=== PATIENT | female | born 1970 | race African-American/Black ===

== ENCOUNTER 2020-05-11 16:42 | Emergency (ER) | payer BC, SELFPAY ==
--- NOTE | ~2020-05-11 | XR_ITS ---
EXAMINATION: XR ankle RT 2V EXAM DATE: 05/11/2020 17:23 INDICATION: Painful lump posterior right Achilles region. TECHNIQUE: Frontal and lateral projections of the right ankle. There is no prior study for comparis on. FINDINGS: There are no acute fractures or dislocations identified. There is no subcutaneous gas. Th e soft tissue is unremarkable. There are no radiopaque foreign bodies. IMPRESSION: 1. Unremarkable XR ankle RT 2V exam. Reviewed, dictated and finalized at location [facility].
[2020-05-11 17:01] VITALS: BP 145/96; PULSE 76; RESP 16; TEMP 36.7; O2SAT 98
--- NOTE | 2020-05-11 17:04 | ED.LOWEXIN ---
HPI - Extremity Injury (Lower) General Chief Complaint: Extremity Injury, Lower Stated Complaint: Foot pain Time Seen by Provider: 05/11/20 17:06 Source: patient and RN notes reviewed Mode of arrival: ambulatory Limitations: no limitations History of Present Illness HPI Narrative: 49-year-old female presents with concern for right ankle pain. She denies any injury, trauma. Reports the area is very tender to touch, however it does not hurt when she is walking or bearing weight. Reports mostly hurts when she lies in bed and the painful area touches the bed or her other foot. She reports pain is a 10 out of 10 when the area is touched. MD complaint: other (Ankle pain) Related Data Home Medications Medication Instructions Recorded Confirmed Unable to Obtain Home Medications 05/11/20 05/11/20 Allergies Allergy/AdvReac Type Severity Reaction Status Date / Time Penicillins Allergy Intermediate Rash Verified 05/11/20 17:04 Review of Systems Review of Systems: Narrative: CONSTITUTIONAL: Denies malaise, chills, sweats, or fever. CARDIOVASCULAR: Denies chest pain, palpitations, or edema. RESPIRATORY: Denies cough or dyspnea. SKIN: Denies bruising, redness MUSCULOSKELETAL: Reports right posterior ankle tenderness NEUROLOGIC: Denies numbness, weakness All systems reviewed & are unremarkable except as noted in HPI and below PMFSH Comments At time of signature, agree with nursing past medical, surgical, social and family history. There is no relevant family history pertinent to the presenting complaint Exam Narrative: Exam Narrative: GENERAL: Well-appearing, well-nourished, and in no acute distress. HEAD: Normocephalic, atraumatic. EYES: PERRLA, conjunctivae clear NECK: Supple. CHEST: Speaks in full sentences. No respiratory distress. HEART: Regular rate and rhythm. Normal and equal peripheral pulses. EXTREMITIES: Right ankle, digits of right foot have normal strength and sensation, normal range of motion. No edema or ecchymosis. 5/5 strength with ankle and digit flexion and extension. Normal sensation with sensitivity to light touch and pain. No open wounds, no skin tenting, no devitalized tissue or atrophy, no trophic changes, no obvious deformity, alignment normal, posterior lateral point tenderness, nearby joints and structures intact. Distal pulses palpable and equal bilaterally, skin warm, dry, pink. Capillary refill less than 3 seconds. SKIN: Warm, dry, no rash. NEURO: Alert and oriented x3. PSYCH: Normal mood and affect Course Course Emergency Course: Patient is aware of diagnosis, understands and agrees to treatment plan. Anticipatory guidance given. Patient agrees to follow-up as directed and is aware of reasons to seek care at the emergency department. Portions of this record may have been created with voice recognition software Vital Signs Vital signs: Vital Signs Temperature 98.0 F 05/11/20 17:01 Pulse Rate 76 05/11/20 17:01 Respiratory Rate 16 05/11/20 17:01 Blood Pressure 145/96 H 05/11/20 17:01 Pulse Oximetry 98 05/11/20 17:01 Temperature 98.0 F 05/11/20 17:01 Pulse Rate 76 05/11/20 17:01 Respiratory Rate 16 05/11/20 17:01 Blood Pressure 145/96 H 05/11/20 17:01 Pulse Oximetry 98 05/11/20 17:01 Reviewed. Patient has history of hypertension MDM - Extremity Injury (Lower) MDM Narrative Medical decision making narrative: Patients pain is consistent with musculoskeletal etiology. No signs of neurological or vascular compromise on exam. Compartments and tissues are soft without signs of compartment syndrome. Pain is felt appropriate for further evaluation on an outpatient basis. Imaging Data My impression: Images reviewed, interpreted by radiologist, agree, see report. Radiologist's impression: EXAMINATION: XR ankle RT 2V EXAM DATE: 05/11/2020 17:23 INDICATION: Painful lump posterior right Achilles region. TECHNIQUE: Frontal and lateral projections of the right ankle.
== END 2020-05-11 17:49 | disposition home or self-care (01) ==
PROVIDERS: Emergency Provider Nurse Practitioner; PCP Family Medicine
DX: M25.571 Pain in right ankle and joints of right foot (principal); I10 Essential (primary) hypertension
CPT/HCPCS: 73600; 99203; G0463

== ENCOUNTER 2020-05-24 09:00 | Emergency (ER) | payer BC, SELFPAY ==
[2020-05-24 09:10] VITALS: BP 145/86; PULSE 74; RESP 16; TEMP 36.5; O2SAT 99
--- NOTE | 2020-05-24 09:13 | ED.GENADULT ---
HPI - General Adult General Chief complaint: Skin/Abscess/Foreign Body Stated complaint: painful lump on right side of head Time Seen by Provider: 05/24/20 09:14 Source: patient and RN notes reviewed Mode of arrival: ambulatory Limitations: no limitations History of Present Illness HPI narrative: 49-year-old -[place] female presents with complaints of Right forehead with a tender and swollen lesion for the past 3-4 months. Tender to touch. Area has increase in size and tenderness over the past 2 weeks. No drainage. History of skin abscess and fatty deposits. No fever or chills. No abdominal pain, nausea, and vomiting. LMP, Post-menopausal. Remains active. The patient reports she have not been diagnosed with COVID-19. The patient reports she is not waiting for the results of a COVID-19 lab test. The patient reports she do not have fever, chills, weakness, fatigue. The patient reports she do not have a new or worsening cough or shortness of breath. Denies chest pain. The patient reports she do not have any rhinorrhea, congestion, loss of taste, sore throat, nausea, vomiting, abdominal pain, and diarrhea. Tolerating po intake well. Denies recent traveling. Denies concerns for COVID-19 or exposures been home with limited outdoor exposure except for essential household needs, work, and return home. At this time, patient is not suspected of having COVID-19. Some parts of this dictation were generated by voice recognition software and may contain typographical and/or grammatical inaccuracies. Related Data Home Medications Medication Instructions Recorded Confirmed No Home Medications 05/24/20 05/24/20 Allergies Allergy/AdvReac Type Severity Reaction Status Date / Time Penicillins Allergy Intermediate Rash Verified 05/24/20 09:08 Review of Systems Review of Systems: Narrative: CONSTITUTIONAL: Denies fever, chills, sweats. EYES: Denies visual changes, redness, discharge. ENT: Denies rhinorrhea, congestion, sore throat, otalgia. CARDIOVASCULAR: Denies chest pain, palpitations, edema. RESPIRATORY: Denies dyspnea, wheezing, cough. GASTROINTESTINAL: Denies abdominal pain, nausea, vomiting, diarrhea. GENITOURINARY: Denies dysuria, hematuria, abnormal discharge. SKIN: Denies rash, itching, drainage. Right forehead with a tender and swollen lesion. MUSCULOSKELETAL: Denies acute back pain, joint pain, or myalgia. NEUROLOGIC: Denies numbness or focal weakness. PSYCHIATRIC: Denies anxiety or depression. All systems reviewed & are unremarkable except as noted in HPI and below. [facility] Past Medical History Medical History (Updated 05/24/20 @ 09:50 by ANTONIO Gramajo) Fatty tumor LT arm Hypertension Obesity Surgical History Surgical History (Updated 05/24/20 @ 09:41 by ANTONIO Gramajo) No significant past surgical history Family History Family History (Updated 05/24/20 @ 09:42 by ANTONIO Gramajo) Father Acute myocardial infarction Mother Hypertension Social History Social History (Updated 05/24/20 @ 09:43 by ANTONIO Gramajo) Smoking status: Never smoker Tobacco type: cigarettes Second hand tobacco smoke exposure: No Alcohol intake: never Substance use: never Living arrangements: with family Occupation/Education: occupation Gender identity (if verbalized by the patient): Female Comments At time of signature, agree with nurse past medical, surgical, social, and family history. There is relevant patient's past medical history pertinent to the presenting complaint, no relevant family history pertinent to the presenting complaint. Exam Narrative: Exam Narrative: GENERAL: This is a well-nourished, well-developed patient, in no apparent distress. Talking in full sentences without deficit and ambulate with steady gait without dyspnea. HEAD: normocephalic, atraumatic. EYES: PERRL. Sclera clear/white. Vision is grossly intact. NECK: Neck supple, non-tende
== END 2020-05-24 09:28 | disposition home or self-care (01) ==
PROVIDERS: Emergency Provider Nurse Practitioner Family; PCP Family Medicine
DX: L73.9 Follicular disorder, unspecified (principal); I10 Essential (primary) hypertension; E66.9 Obesity, unspecified; Z68.42 Body mass index [BMI] 45.0-49.9, adult
CPT/HCPCS: 99213; G0463

== ENCOUNTER 2020-05-25 16:27 | Emergency (ER) | payer BC, SELFPAY ==
[2020-05-25 16:39] VITALS: BP 150/107; PULSE 82; RESP 18; TEMP 36.4; O2SAT 100
[2020-05-25] MEDS: HYDROcodone/acetaminophen (*CRX) 5-325 MG TABLET 1 TAB PO (17:39)
--- NOTE | 2020-05-25 17:42 | ED.GENADULT ---
HPI - General Adult General Chief complaint: Skin/Abscess/Foreign Body <Willie Montague PA-C - Last Filed: 05/25/20 17:46> Stated complaint: knot on head <Willie Montague PA-C - Last Filed: 05/25/20 17:46> Time Seen by Provider: 05/25/20 16:43 <Willie Montague PA-C - Last Filed: 05/25/20 17:46> Source: patient <Willie Montague PA-C - Last Filed: 05/25/20 17:46> Mode of arrival: ambulatory <Willie Montague PA-C - Last Filed: 05/25/20 17:46> Limitations: no limitations <Willie Montague PA-C - Last Filed: 05/25/20 17:46> History of Present Illness HPI narrative: Patient is a 49-year-old female who presents with several days duration of red tender swollen area to the right restorationist region denies similar occurrence in the past injury or trauma or other complaints has not been seen for this on arrival is resting comfortably in the room does not appear uncomfortable <Willie Montague PA-C - Last Filed: 05/25/20 17:46> Related Data Allergies/adverse reactions: Allergies Allergy/AdvReac Type Severity Reaction Status Date / Time Penicillins Allergy Intermediate Rash Verified 05/24/20 09:08 <Willie Montague PA-C - Last Filed: 05/25/20 17:46> Review of Systems Review of Systems: All systems reviewed & are unremarkable except as noted in HPI and below <Willie Montague PA-C - Last Filed: 05/25/20 17:46> [facility] Past Medical History Medical History: Medical History Fatty tumor LT arm Hypertension Obesity <SHAHBAZ Low Last Filed: 05/25/20 17:46> Surgical History Surgical History: Surgical History No significant past surgical history <Willie Montague PA-C - Last Filed: 05/25/20 17:46> Family History Family History: Family History (Updated 05/24/20 @ 09:42 by ANTONIO Gramajo) Father Acute myocardial infarction Mother Hypertension <Willie Montague PA-C - Last Filed: 05/25/20 17:46> Social History Social History: Social History Smoking status: Never smoker Tobacco type: cigarettes Second hand tobacco smoke exposure: No Alcohol intake: never Substance use: never Gender identity (if verbalized by the patient): Female <Willie Montague PA-C - Last Filed: 05/25/20 17:46> Exam Narrative: Exam Narrative: GENERAL: Well-appearing, well-nourished, and in no acute distress. HEAD: Normocephalic, atraumatic. EYES: PERRLA and EOMI. ENT: Nares clear, no rhinorrhea or epistaxis. Mucous membranes moist. EXTREMITIES: Normal range of motion. No edema. SKIN: Warm, dry, no rash. Patient with 1 cm tender swollen area to the right restorationist region no cellulitic changes NEURO: No focal deficits. Alert and oriented x3. PSYCH: Normal mood and affect. <Willie Montague PA-C - Last Filed: 05/25/20 17:46> Course Course Emergency Course: Patient in the room in no distress had I&D of cyst to the right restorationist region felt appropriate for discharge home <Willie Montague PA-C - Last Filed: 05/25/20 17:46> Vital Signs Vital signs: Vital Signs Temperature 36.4 C L 05/25/20 16:39 Pulse Rate 82 05/25/20 16:39 Respiratory Rate 18 05/25/20 16:39 Blood Pressure 150/107 H 05/25/20 16:39 Pulse Oximetry 100 05/25/20 16:39 Temperature 36.4 C L 05/25/20 16:39 Pulse Rate 82 05/25/20 16:39 Respiratory Rate 18 05/25/20 16:39 Blood Pressure 150/107 H 05/25/20 16:39 Pulse Oximetry 100 05/25/20 16:39 <Willie Montague PA-C - Last Filed: 05/25/20 17:46> Vital Signs Temperature 36.4 C L 05/25/20 16:39 Pulse Rate 82 05/25/20 16:39 Respiratory Rate 18 05/25/20 16:39 Blood Pressure 150/107 H 05/25/20 16:39 Pulse Oximetry 100 05/25/20 16:39 Temperature 36.4 C L 05/25/20 16:39 Pulse
[2020-05-25 17:59] VITALS: BP 138/70; PULSE 78; RESP 18; O2SAT 99
== END 2020-05-25 18:01 | disposition home or self-care (01) ==
PROVIDERS: Emergency Provider Emergency Medicine; PCP Family Medicine
DX: L02.01 Cutaneous abscess of face (principal); I10 Essential (primary) hypertension
CPT/HCPCS: 10060; 99283; A9270

== ENCOUNTER 2021-07-16 22:34 | Emergency (ER) | payer OTHER, SELFPAY ==
--- NOTE | ~2021-07-16 | CT_ITS ---
EXAMINATION: CT abdomen pelvis w con DATE: 07/16/2021 23:41 INDICATION: Epigastric abdominal pain for 3 hours. Nausea and vomiting. TECHNIQUE: Computed tomography (CT) of the abdomen and pelvis was performed with 100 cc Omnipaque 350 intravenous contrast. Automated exposure control and iterative reconstruction technique were employe d. Exam dose: 1531.24 mGy-cm total exam DLP. COMPARISON: None. FINDINGS: Minimal dependent atelectasis in the lower lung zones. Normal heart size. No pericardial or pleural effusion. The liver, gallbladder, bile ducts, spleen, pancreas, pancreatic duct, and adrenal glands are unremar kable with the exception of a possible small adenoma of the lateral limb of the left adrenal gland. No renal mass lesion or urinary tract calculus or hydroureteronephrosis. Normal caliber of the abdominal aorta. No intraperitoneal or retroperitoneal or pelvic mass lesion or adenopathy or ascites. The urinary bladder, uterus and adnexal areas are unremarkable. Normal appendix. No evidence of appendicitis. No bowel obstruction, bowel wall thickening, pneumatosi s or intraperitoneal free air. Small fat-containing umbilical hernia. Included skeletal structures are unremarkable. IMPRESSION: No significant abnormality Reviewed, dictated and finalized at [facility]. Reviewed, dictated and finalized at location A. [employer] IMPRESSION: No significant abnormality
[2021-07-16 22:39] VITALS: BP 176/105; PULSE 65; RESP 17; TEMP 36.4; O2SAT 99
[2021-07-16 22:50] VITALS: O2SAT 99
[2021-07-16 22:51] VITALS: BP 157/86; O2SAT 100
[2021-07-16 22:51] LABS: Basophils Percent Auto 0.3 % (0.2-1.2); Eosinophils Absolute Auto 0.1 K/mm3 (0-0.3); Eosinophils Percent Auto 1.3 % (0-4.4); Hematocrit 40.1 % (37.0-47.0); Immature Granulocyte Absolute 0.05 K/mm3 (0.00-0.031); Immature Granulocyte Percent A 0.5 % (0-0.5); Lymphocytes Absolute Auto 1.94 K/mm3 (0.9-3.2); Lymphocytes Percent Auto 21.3 % (18.3-44.2); Mean Corpuscular HGB Conc 32.4 g/dl (32-36); Mean Corpuscular Hemoglobin 29.2 pg (26-34); Mean Corpuscular Volume 90.1 fl (80-100); Monocytes Absolute Auto 0.6 K/mm3 (0.1-0.6); Monocytes Percent Auto 6.7 % (2.6-8.5); Neutrophils Absolute Auto 6.4 K/mm3 (1.3-6.7); Neutrophils Percent Auto 69.9 % (45.5-73.1); Platelet Count Result 238 k/mm3 (150-375); Red Blood Count 4.45 M/mm3 (4.2-5.4); Red Cell Distribution Width 14.2 % (11.5-14.5); White Blood Count 9.1 K/mm3 (4.5-10.0)
[2021-07-16 22:52] VITALS: O2SAT 100
[2021-07-16 22:54] VITALS: BP 157/86; PULSE 65; RESP 20; O2SAT 96
--- NOTE | 2021-07-16 22:55 | ECG_ITS ---
Measurements Intervals [place] Rate: 70 P: 52 AL: 186 QRS: 70 QRSD: 83 T: 48 QT: 426 QTc: 463 Interpretive Statements SINUS RHYTHM BORDERLINE T WAVE ABNORMALITY- ANT/HIGH LAT LEADS BASELINE WANDER- I, II, AVR, AVF BORDERLINE ECG Electronically Signed On 07-17-2021 6:09:46 [employer]INE [employer]IRER by Juan Rao D.O.
[2021-07-16 23:09] LABS: Alanine Aminotransferase 24 U/L (4-35); Albumin Level 4.4 g/dL (3.5-5.1); Alkaline Phosphatase 116 U/L (38-126); Anion Gap 7 mmol/L (8-16); Aspartate Amino Transferase 31 U/L (14-36); Bilirubin,Total 0.4 mg/dL (0.2-1.3); Blood Urea Nitrogen 12 mg/dL (7-17); Calcium 9.2 mg/dL (8.4-10.2); Carbon Dioxide 30 mmol/L (22-30); Chloride 103 mmol/L (98-107); Estimated CRCL calculation 83 ml/min; Estimated Glomerular Filt Rate > 60; Glucose 150 mg/dL (65-110); Lipase 116 U/L (23-300); Sodium 140 mmol/L (137-145)
[2021-07-16 23:22] LABS: Add Urine Microscopic? YES; Appearance Urine Clear (Clear); Bilirubin Urine Negative (Negative); Blood Urine 1+ (Negative); Color Urine Straw (Yellow); Glucose Urine UA Negative (Negative); Ketones Urine Negative (Negative); Leukocyte Esterase Ur Negative LEU/UL (Negative); Nitrate Urine Negative (Negative); Protein Urine Negative (Negative); Specific Grav Ur 1.014 (1.001-1.035); Squamous Epithelial Cell Urine Few /hpf (Few); Urobilinogen Urine Negative mg/dL (<2.0); WBC Urine 0-3 /hpf
[2021-07-16 23:23] LABS: Troponin I < 0.012 ng/mL (0.000-0.034)
[2021-07-16] MEDS: SODIUM CHLORIDE 0.9% IV 1,000 ML 999 ML IV CONT (23:34)
[2021-07-16] MEDS: MORPHINE SULFATE (*CRX) 4 MG/ML INJ IV PUSH (23:35)
[2021-07-16] MEDS: ONDANSETRON INJ 4 MG/2 ML VIAL IV PUSH (23:38)
[2021-07-17] VITALS (8 sets, daily range): BP systolic 157–169; BP diastolic 111–118; PULSE 65–77; RESP 14–17; O2SAT 92–99
--- NOTE | 2021-07-17 00:03 | ED.GENADULT ---
HPI - General Adult General Chief complaint: Abdominal Pain Stated complaint: abd pain Time Seen by Provider: 07/16/21 22:47 History of Present Illness HPI narrative: Patient is a 50-year-old female presents emergency department with chief complaint of abdominal pain. Patient reports that this evening she started having severe cramping in the epigastric region. The patient reports that the pain is not improved by anything reports is not worsened by anything either. Patient reports she is had some nausea with it and does had some vomiting denies diarrhea. The patient reports no prior surgical history of the abdomen. Related Data Allergies Allergy/AdvReac Type Severity Reaction Status Date / Time Penicillins Allergy Intermediate Rash Verified 07/16/21 22:42 Review of Systems Review of Systems: A 10 system review of systems was completed on the patient and is negative except for what is stated in the HPI. Nursing and ancillary documentation was reviewed. PMFSH Past Medical History Medical History Fatty tumor LT arm Hypertension Obesity Surgical History Surgical History No significant past surgical history Family History Family History Father Acute myocardial infarction Mother Hypertension Social History Social History Smoking status: Never smoker Tobacco type: cigarettes Second hand tobacco smoke exposure: No Alcohol intake: never Substance use: never Gender identity (if verbalized by the patient): Female Exam Narrative: GENERAL: Well-appearing, well-nourished, and in no acute distress. HEAD: Normocephalic, atraumatic. EYES: PERRLA and EOMI. ENT: Nares clear, no rhinorrhea or epistaxis. Mucous membranes moist. NECK: Supple. CHEST: Clear to auscultation. No respiratory distress. HEART: Regular rate and rhythm. No murmur heard. Normal peripheral pulses. ABDOMEN: Soft, nontender, nondistended, normal active bowel sounds. EXTREMITIES: Normal range of motion. No edema. SKIN: Warm, dry, no rash. NEURO: No focal deficits. Alert and oriented x3. PSYCH: Normal mood and affect. Course Vital Signs Vital signs: Vital Signs Temperature 36.4 C 07/16/21 22:39 Pulse Rate 65 07/16/21 22:39 Respiratory Rate 17 07/16/21 22:39 Blood Pressure 176/105 H 07/16/21 22:39 Pulse Oximetry 99 07/16/21 22:39 Temperature 36.4 C 07/16/21 22:39 Pulse Rate 77 07/17/21 01:00 Respiratory Rate 16 07/17/21 01:00 Blood Pressure 157/86 H 07/16/21 22:54 Pulse Oximetry 96 07/17/21 01:00 Medical Decision Making Vital Signs Vital Signs: Vital Signs Temperature 36.4 C 07/16/21 22:39 Pulse Rate 65 07/16/21 22:39 Respiratory Rate 17 07/16/21 22:39 Blood Pressure 176/105 H 07/16/21 22:39 Pulse Oximetry 99 07/16/21 22:39 Temperature 36.4 C 07/16/21 22:39 Pulse Rate 77 07/17/21 01:00 Respiratory Rate 16 07/17/21 01:00 Blood Pressure 157/86 H 07/16/21 22:54 Pulse Oximetry 96 07/17/21 01:00 Lab Data Result diagrams: 07/16/21 22:47 07/16/21 22:46 Labs: Lab Results 07/16/21 07/16/21 07/16/21 Range/Units 22:46 22:46 22:47 WBC 9.1 (4.5-10.0) K/mm3 RBC 4.45 (4.2-5.4) M/mm3 Hgb 13.0 (12.0-15.0) g/dL Hct 40.1 (37.0-47.0) % MCV 90.1 (80-100) fl MCH 29.2 (26-34) pg MCHC 32.4 (32-36) g/dl RDW 14.2 (11.5-14.5) % Plt Count 238 (150-375) k/mm3 MPV 11.0 H (7.4-10.4) fl Immature Gran % (Auto) 0.5 (0-0.5) % Neut % (Auto) 69.9 (45.5-73.1) % Lymph % (Auto) 21.3 (18.3-44.2) % [place] % (Auto) 6.7 (2.6-8.5) % Eos % (Auto) 1.3 (0-4.4) % Baso % (Auto) 0.3 (0.2-1.2) % Lymph # (Auto) 1.94 (0.9-3.2
[2021-07-17] MEDS: HYDROmorphone HCL INJ (*CRX) 1 MG/ML SYR IV PUSH (00:32)
[2021-07-17] MEDS: PROCHLORPERAZINE EDISYLATE 10 MG/2 ML VIAL IV PUSH (00:51)
== END 2021-07-17 02:39 | disposition home or self-care (01) ==
PROVIDERS: Emergency Medicine; Emergency Provider Emergency Medicine
DX: R10.13 Epigastric pain (principal); I10 Essential (primary) hypertension; E66.9 Obesity, unspecified; Z68.41 Body mass index [BMI] 40.0-44.9, adult
CPT/HCPCS: 36415; 74177; 80053; 81001; 83690; 84484; 85025; 93005; 96361; 96374; 96375; 99284; J0780; J1170; J2270; J2405; J7030; Q9967